=== PATIENT | female | born 2000 | race Two or more races ===

== ENCOUNTER 2021-09-03 14:24 | Emergency (ER) | payer OTHER ==
[~2021-09-03] VITALS: Ht 157.5 cm; Wt 49.9 kg
[2021-09-03 16:38] VITALS: BP 148/95
[2021-09-03] MEDS ORDERED: LIDOCAINE 1%HCL (LOCAL ANESTH) 10 ML MDV ONE (16:53)
[2021-09-03] MEDS ORDERED: CEPH-509 PO (17:04)
[2021-09-03] MEDS ORDERED: ACET-1158 PO (17:04)
== END 2021-09-03 18:09 | disposition home or self-care (01) ==
LOC: ER 14:24
DX: S61.211A Laceration without foreign body of left index finger without damage to nail, initial encounter (principal); W26.0XXA Contact with knife, initial encounter; Y93.89 Activity, other specified; Y92.89 Other specified places as the place of occurrence of the external cause; Y99.8 Other external cause status
CPT/HCPCS: 12002; 29130; 99283; J2001

== ENCOUNTER 2021-09-06 12:02 | Emergency (ER) | payer OTHER ==
[~2021-09-06] VITALS: Ht 157.5 cm; Wt 49.9 kg
[~2021-09-06 12:02] MED LIST: ACET-1158 PO; CEPH-509 PO
[2021-09-06 12:22] VITALS: BP 114/79
== END 2021-09-06 12:33 | disposition home or self-care (01) ==
LOC: ER 12:02
DX: S61.211D Laceration without foreign body of left index finger without damage to nail, subsequent encounter (principal); Z79.899 Other long term (current) drug therapy; X58.XXXD Exposure to other specified factors, subsequent encounter

== ENCOUNTER 2021-09-12 18:48 | Emergency (ER) | payer OTHER ==
[~2021-09-12] VITALS: Ht 157.5 cm; Wt 49.9 kg
[2021-09-12 18:48] VITALS: BP 136/89
== END 2021-09-12 21:09 | disposition home or self-care (01) ==
LOC: ER 18:50
DX: R20.2 Paresthesia of skin (principal); Z79.899 Other long term (current) drug therapy

== ENCOUNTER 2021-09-20 18:11 | Emergency (ER) | payer OTHER ==
[~2021-09-20] VITALS: Ht 157.5 cm; Wt 49.9 kg
[2021-09-20 20:33] VITALS: BP 129/83
== END 2021-09-20 20:36 | disposition home or self-care (01) ==
LOC: ER 18:13
DX: S61.218D Laceration without foreign body of other finger without damage to nail, subsequent encounter (principal); W26.0XXD Contact with knife, subsequent encounter